=== PATIENT | female | born 1980 | race Caucasian/White ===

== ENCOUNTER 2025-06-17 17:40 | Emergency (ER) | payer OTHER ==
[~2025-06-17] VITALS: Ht 159.5 cm; Wt 154.0 kg
[2025-06-17 18:15] VITALS: BP 94/60; PULSE 63; RESP 18; TEMP 36.9; O2SAT 96
[2025-06-17 20:22] LABS: BASOPHILS % 0.9 % (0.0-2.0); EOSINOPHILS % 1.6 % (0.0-5.0); HEMATOCRIT. 37.8 % (36.0-48.0); HEMOGLOBIN. 12.5 g/dL (12.0-16.0); LYMPHOCYTES % 28.3 % (20.0-50.0); MEAN PLATELET VOLUME 8.9 fl (7.4-10.4); MONOCYTES % 7.8 % (2.0-8.0); NEUTROPHILS % 61.4 % (40.0-76.0); PLATELET 202 x1000/uL (130-400); RED BLOOD CELL COUNT 4.20 mill/uL (4.2-5.4); RED CELL DISTRIBUTION WIDTH 14.4 % (11.6-14.6)
[2025-06-17 20:38] LABS: INR 1.0
[2025-06-17 20:39] LABS: CREATININE 1.1 mg/dL (0.6-1.0); UREA NITROGEN BLOOD 14 mg/dL (9-23)
[2025-06-17 20:40] LABS: TROPONIN I HIGH SENSITIVITY < 4 ng/L (3.0-34)
[2025-06-17 20:41] LABS: ASPARTATE AMINOTRANSFERASE 15 IU/L (<34); BILIRUBIN DIRECT 0.2 mg/dL (<=3.0); BILIRUBIN TOTAL 0.7 mg/dL (0.1-1.0); PROTEIN TOTAL 7.0 g/dL (6.0-8.3)
[2025-06-17 20:56] LABS: HCG SCREEN NEGATIVE
[2025-06-18 00:04] LABS: TROPONIN I HIGH SENSITIVITY < 4 ng/L (3.0-34)
== END 2025-06-18 00:38 | disposition home or self-care (01) ==
LOC: ER 17:40
DX: R00.2 Palpitations (principal); R07.9 Chest pain, unspecified; E11.9 Type 2 diabetes mellitus without complications; E78.00 Pure hypercholesterolemia, unspecified; R06.02 Shortness of breath
CPT/HCPCS: 36415; 71045; 80048; 80076; 83735; 83880; 84484; 84703; 85025; 85379; 93005; 99285